=== PATIENT | female | born 1990 | race American Indian/Alaskan Native ===

== ENCOUNTER 2023-10-22 08:41 | Emergency (ER) | payer OTHER | END 2023-10-22 10:00 | disposition home or self-care (01) | LOC: JP.ED 08:41 | DX: S62.305A Unspecified fracture of fourth metacarpal bone, left hand, initial encounter for closed fracture (principal); W19.XXXA Unspecified fall, initial encounter | CPT/HCPCS: 29125; 73130-26-LT; 73130-LT; 99283-25 ==